=== PATIENT | female | born 1960 | race Caucasian/White ===

== ENCOUNTER 2024-01-02 11:54 | Emergency (ER) | payer MEDICARE, OTHER ==
--- NOTE | 2024-01-02 12:52 | RAD REPORT ---
EXAMINATION: ONE VIEW CHEST XR CLINICAL INDICATION: COUGH TECHNIQUE: Frontal chest projection is submitted. Examination is limited by patient positioning and t echnique. COMPARISON: No prior exam. FINDINGS: The lungs are well inflated and clear. The heart is normal in size. No displaced fractures identified . IMPRESSION: No acute intrathoracic abnormalities.
[2024-01-02] MEDS ORDERED: ALBUTEROL 2.5 MG/3 ML NEB SOL ONE (13:22)
[2024-01-02] MEDS ORDERED: IPRATROPIUM BROM 0.5MG/2.5ML ONE (13:22)
[2024-01-02] MEDS ORDERED: ACETAMINOPHEN 500 MG TAB ONE (13:23)
[2024-01-02 13:28] LABS: Absolute Eosinophils 0.1 K/uL (0-0.5); Absolute Lymphocytes (CBC) 0.4 K/uL (0.7-4.9); Absolute Monocytes 0.6 K/uL (0.1-1.3); Absolute Neutrophil 6.2 K/uL (1.8-8.0); Basophils % 0.6 % (0-1.3); Eosinophils % 1.5 % (0-4.4); Hemoglobin 13.9 g/dL (12.0-15.0); MCH 28.3 pg (27.0-35.0); MCHC 32.3 g/dL (32.0-36.0); MCV 87.5 fL (80-100); MPV 9.5 fL (7.6-11.3); Monocytes % 8.7 % (3.3-12.3); Neutrophils % 84.2 % (41.7-73.7); Platelets 175 thou/uL (152-406); RBC Red Blood Cell Count 4.91 M/uL (3.86-4.86); Red Cell Distribution Width 15.3 % (12.1-15.2)
[2024-01-02 13:41] LABS: SARS-CoV-2 Antigen CONTROL BLUE LINE VIS/BG OK; SARS-CoV-2 Antigen Rapid Res Negative (Negative)
[2024-01-02 13:49] LABS: Albumin 3.6 g/dL (3.4-5.0); Albumin/Globulin Ratio 0.9 (1.1-1.8); Bilirubin Total 0.4 mg/dL (0.2-1.0); Protein, Total 7.6 g/dL (6.4-8.2); Troponin High Sensitivity 11.7 pg/mL (<58.9)
--- NOTE | 2024-01-02 14:25 | ER ---
Nurse's Notes [facility] Name: Amberly Reddy Age: 63 yrs Sex: Female : 1960 Arrival Date: 01/02/2024 Time: 11:54 Bed 25 Private MD: Diagnosis: Viral infection, unspecified Presentation: 01/01 12:08 Chief complaint: Patient states: Cough, congestion, SOB for 2 days. Sent from [address] [facility] office for low O2 (93%). Coronavirus screen: Client denies travel out of the [place] in the last 14 days. congestion, cough unrelated to allergies, fatigue, headache, Client presents with at least one sign or symptom that may indicate coronavirus-19. Standard/surgical mask placed on the client. Ebola Screen: Patient denies travel to an Ebola-affected area in the 21 days before illness onset. Resp Distress? Mild respiratory distress is noted. Initial Sepsis Screen: Does the patient meet any 2 criteria? No. Patient's initial sepsis screen is negative. Does the patient have a suspected source of infection? No. Patient's initial sepsis screen is negative. Risk Assessment: Do you want to hurt yourself or someone else? Patient reports no desire to harm self or others. Onset of symptoms was January 01, 2024. 12:08 Method Of Arrival: Ambulatory [facility] 12:08 Acuity: [place] 3 [facility] Historical: - Allergies: 12:09 No Known Allergies; 1 - PMHx: 12:09 Hypertensive disorder; Hypercholesterolemia; [facility] - PSHx: 12:09 6 heart stents; [facility] - Immunization history:: Adult Immunizations up to date. - Infectious Disease History:: Denies. - Social history:: Smoking status: Patient denies any tobacco usage or history of. Screenin:08 [facility] ED Fall Risk Assessment (Adult) History of falling in the last 3 months, ph including since admission No falls in past 3 months (0 pts) Confusion or Disorientation No (0 pts) Intoxicated or Sedated No (0 pts) Impaired Gait No (0 pts) Mobility Assist Device Used No (0 pt) Altered Elimination No (0 pt) Score/Fall Risk Level 0 - 2 = Low Risk Oriented to surroundings, Maintained a safe environment, Hourly rounding (assess needs \T\ fall precautionary measures) done. Abuse screen: Denies threats or abuse. Denies injuries from another. Nutritional screening: No deficits noted. Tuberculosis screening: No symptoms or risk factors identified. Assessment: 13:29 General: Appears in no apparent distress. comfortable, Behavior is calm, cooperative, ph appropriate for age, Reports chills for. Pain: Denies pain. Neuro: Level of Consciousness is awake, alert, obeys commands, Oriented to person, place, time, situation. Cardiovascular: Capillary refill < 3 seconds in bilateral fingers Patient's skin is warm and dry. Respiratory: Reports shortness of breath cough that is Airway is patent Respiratory effort is even, unlabored, Respiratory pattern is regular, symmetrical, Breath sounds are clear bilaterally. Derm: Skin is pink, warm \T\ dry. Vital Signs: 12:08 BP 202 / 87; Pulse 88; Resp 20; Temp 99.1; Pulse Ox 98% on R/A; Weight 127.01 kg; ll1 Height 5 ft. 3 in. ; Pain 5/10; 13:29 BP 172 / 87; Pulse 80; Resp 18; Pulse Ox 98% on R/A; ph 14:43 BP 147 / 86; Pulse 79; Resp 18; Temp 98.7; Pulse Ox 98% on R/A; ph 12:08 Body Mass Index 49.60 (127.01 kg, 160.02 cm) ll1 12:08 Pain Scale: Adult ll1 ED Course: 11:58 Patient arrived in ED. im 12:03 Arm band placed on. ll1 12:09 Triage completed. ll1 12:10 Micha Solano MD is Attending Physician. ec2 12:44 CXR XRAY In Process Unspecified. EDMS 13:07 Angelia Kemp, RN is Primary Nurse. ph 13:09 Patient has correct armband on for positive identification. Bed in low position. Call ph light in reach. Side rails up X 1. monitoring coordinator on. Pulse ox on. NIBP on. 13:10 SARS RAPID Sent. ph 13:10 Influenza Screen (a \T\ B) Sent. ph 13:23 CMP Sent. ss 13:23 CBC with Diff Sent. ss 13:23 Inserted saline lock: 20 gauge in right antecubital area, using aseptic technique. ss Blood collected. Flushed with 10 mL NS. 13:29 Troponin High Sensitivity Sent. ph 13:29 CMP Sent. ph 13:29 CBC with Diff Sent. ph 14:44 No provider procedures requiring assistance completed. IV discontinued, intact, ph bleeding controlled, No redness/swelling at site. Pressure dressing applied. Administered Medications: 13: Drug: DuoNeb Nebulize (3:1) (2.5 mg - 0.5 mg) 3 ml Nebulizer once Route: Nebulizer; ph 13:47 Follow up: Response: No adverse reaction ph 13:29 Drug: Acetaminophen PO 1000 mg PO once Route: PO; ph 13:47 Follow up: Response: No adverse reaction ph Medication: 13:09 VIS not applicable for this client. ph Outcome: 14:25 Discharge ordered by . ec2 14: Discharged to home via wheelchair, ph 14:44 Condition: good :44 Discharge instructions given to patient, Instructed on discharge instructions, follow up and referral plans. medication usage, Demonstrated understanding of instructions, follow-up care, medications, Prescriptions given X 1, :44 Patient left the ED. ph Signatures: Dispatcher [employer] Keshia Stephens, Angelia Edwards RN, RN RN Misha Love RN RN ll1 Monik Hare Edwin, MD MD ec2
--- NOTE | 2024-01-02 14:25 | EDPHYS ---
Physician Documentation [facility] Name: Amberly Reddy Age: 63 yrs Sex: Female : 1960 Arrival Date: 01/02/2024 Time: 11:54 Bed 25 Private MD: ED Physician Micha Solano HPI: 01/01 13:25 This 63 yrs old Female presents to ER via Ambulatory with complaints of Flu ec2 Symptoms, low O2, Congestion. 13:25 Patient arrives today for 1 day of cough and cold symptoms. Patient reports that she is ec2 having cough and congestion as well as poor appetite and generalized weakness. Was seen at the [facility] office and told to come to the ED to be further evaluated. Reportedly oxygen levels at 93.. Historical: - Allergies: 12:09 No Known Allergies; ll1 - PMHx: 12:09 Hypertensive disorder; Hypercholesterolemia; ll1 - PSHx: 12:09 6 heart stents; ll1 - Immunization history:: Adult Immunizations up to date. - Infectious Disease History:: Denies. - Social history:: Smoking status: Patient denies any tobacco usage or history of. ROS: 13:25 Constitutional: as per hpi ec2 Exam: 13:25 Constitutional: GEN: NAD Head: atraumatic Eyes: EOMI Ears: External ears are ec2 normal. CV: regular, trace lower extremity edema noted. LUNGS: no respiratory distress, wheezes or rales or rhonchi ABD: non-distended, obese SKIN: no evidence of rashes MSK: no evidence of trauma Vital Signs: 12:08 BP 202 / 87; Pulse 88; Resp 20; Temp 99.1; Pulse Ox 98% on R/A; Weight 127.01 kg; ll1 Height 5 ft. 3 in. ; Pain 5/10; 13:29 BP 172 / 87; Pulse 80; Resp 18; Pulse Ox 98% on R/A; ph 14:43 BP 147 / 86; Pulse 79; Resp 18; Temp 98.7; Pulse Ox 98% on R/A; ph 12:08 Body Mass Index 49.60 (127.01 kg, 160.02 cm) ll1 12:08 Pain Scale: Adult ll1 MDM: 12:31 Medical Screening Exam initiated ec2 13:25 Data reviewed: vital signs, nurses notes. ED course: Patient arrives today for ec2 evaluation of upper respiratory symptoms. Examination remarkable for well-appearing nontoxic individuals otherwise in no acute distress with a reassuring examination. Chest x-ray shows no acute intrathoracic process. Will obtain lab work including EKG as well as cardiac profile. Differential includes viral infection, pneumonia, volume overload. 14:08 ED course: EKG independently reviewed and interpreted by me, shows normal sinus rhythm, ec2 rate of 90, no acute ST segment ovation's, intervals are nonactionable.. 14:11 ED course: CBC, metabolic profile are nonactionable. Flu and COVID testing negative. ec2 Troponin within normal ranges. On reassessment patient is well-appearing no acute distress. Will discharge home, suspect viral process. Return precautions given.. 01/01 12:14 Order name: CBC with Diff; Complete Time: 14:10 ec2 01/01 12:14 Order name: CMP; Complete Time: 14:10 ec2 01/01 12:14 Order name: Influenza Screen (a \T\ B); Complete Time: 14:10 ec2 01/01 12:14 Order name: SARS RAPID; Complete Time: 14:10 ec2 01/01 12:14 Order name: Troponin High Sensitivity; Complete Time: 14:10 ec2 01/01 12:14 Order name: CXR XRAY; Complete Time: 12:57 ec2 01/01 12:14 Order name: EKG - Nurse/Tech; Complete Time: 13:47 ec2 Administered Medications: 13:29 Drug: DuoNeb Nebulize (3:1) (2.5 mg - 0.5 mg) 3 ml Nebulizer once Route: Nebulizer; ph 13:47 Follow up: Response: No adverse reaction ph 13:29 Drug: Acetaminophen PO 1000 mg PO once Route: PO; ph 13:47 Follow up: Response: No adverse reaction ph Disposition Summary: 01/02/24 14:25 Discharge Ordered Notes: Location: Home ec2 Condition: Stable ec2 Diagnosis - Viral infection, unspecified ec2 Followup: ec2 - With: Private Physician - When: - Reason: Re-evaluation by your physician Discharge Instructions: - Discharge Summary Sheet ec2 - Viral Illness, Adult ec2 Forms: - Medication Reconciliation Form ec2 - Antibiotic Education ec2 - Prescription Opioid Use ec2 - Patient Portal Instructions ec2 - Leadership Thank You Letter ec2 Prescriptions: - albuterol sulfate 90 mcg/actuation Inhalation HFA Aerosol Inhaler - inhale 2 inhalation INHALATION route every 4 to 6 hours as needed for shortness ec2 of breath or wheezing; 1 unit; Refills: 0, Product Selection Permitted Signatures: Dispatcher [employer] Angelia Moser RN RN Misha Love RN RN ll1 Micha Solano MD MD ec2
[2024-01-02 15:04] VITALS: O2SAT 98
[2024-01-02 15:20] VITALS: BP 147/86; TEMP 98.7
== END 2024-01-02 14:44 | disposition home or self-care (01) ==
LOC: ER 11:54
DX: B34.9 Viral infection, unspecified (principal); Z11.52 Encounter for screening for COVID-19; I10 Essential (primary) hypertension; Z95.818 Presence of other cardiac implants and grafts
CPT/HCPCS: 85025; 36415; 84484; 80053; 87804 ×2; 71045; 87811; J7613; J7644